=== PATIENT | male | born 2000 | race Caucasian/White ===

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

== ENCOUNTER 2022-12-06 19:28 | Emergency (ER) | payer OTHER, BC ==
[2022-12-07] MEDS ORDERED: Lidocaine 1% w/Epinephrine 1:100K 20 ML VIAL ONE (00:14)
[2022-12-07] MEDS ORDERED: Bacitracin 1 PK ONE (00:21)
== END 2022-12-07 00:20 | disposition home or self-care (01) ==
LOC: ERS 19:28
DX: S51.012A Laceration without foreign body of left elbow, initial encounter (principal); S80.01XA Contusion of right knee, initial encounter; V29.99XA Rider (driver) (passenger) of other motorcycle injured in unspecified traffic accident, initial encounter
CPT/HCPCS: 12001

== ENCOUNTER → 2024-07-12 | Day surgery (SDC) | payer BC ==
[~2024-07-12] MED LIST: Gadobenate Dimeglumine 2 ML, Sodium Chloride 0.9% 250 ML 10 ML, Iopamidol 8 ML, Lidocai... FS SCH; Sodium Bicarbonate 0.5 MEQ/ML SDV 10 ML ONE
== END ==
LOC: RAD 08:31
PROVIDERS: ATTEND Family Medicine Sports Medicine
PROC: BP38YZZ Magnetic Resonance Imaging (MRI) of Right Shoulder using Other Contrast (ICD-10-PCS; principal; 2024-07-12)
DX: S43.431A Superior glenoid labrum lesion of right shoulder, initial encounter (principal); X58.XXXA Exposure to other specified factors, initial encounter
CPT/HCPCS: 23350; 77002; A9577; J0171; J7050; Q9967